=== PATIENT | male | born 1995 | race American Indian/Alaskan Native ===

== ENCOUNTER 2017-12-21 01:48 | Emergency (ER) | payer OTHER ==
[2017-12-21] MEDS ORDERED: MOTRIN ONE (02:02)
[2017-12-21] MEDS ORDERED: MOTRIN PO ONE (02:15)
[2017-12-21] MEDS ORDERED: MORPHINE IV ONE (02:37)
[2017-12-21] MEDS ORDERED: ZOFRAN IV ONE (02:38)
[2017-12-21 02:53] LABS: Basophils # (Auto) 0.1 K/mm3 (0.0-0.1); Basophils % (Auto) 0.7 % (0.0-1.8); Eosinophils # (Auto) 0.4 K/mm3 (0.0-0.4); Eosinophils % (Auto) 2.8 % (0.0-4.3); Hematocrit 43.2 % (35.5-45.6); Hemoglobin 14.5 gm/dl (11.8-15.2); Lymphocytes % (Auto) 30.4 % (13.4-35.0); Mean Corpuscular HGB Conc 34 % (32-34); Mean Corpuscular Hemoglobin 28 pg (28-32); Mean Corpuscular Volume 82 fl (84-94); Monocytes # (Auto) 0.7 K/mm3 (0.0-0.8); Monocytes % (Auto) 5.6 % (0.0-7.3); Platelet Count 326 K/mm3 (140-440); Red Blood Count 5.26 M/mm3 (3.65-5.03); Red Cell Distribution Width 13.2 % (13.2-15.2)
[2017-12-21 02:55] LABS: Alanine Aminotransferase 45 units/L (7-56); Albumin 4.7 g/dL (3.9-5); BUN/Creatinine Ratio 21; Blood Urea Nitrogen 25 mg/dL (9-20); Calcium 9.3 mg/dL (8.4-10.2); Hemolysis Index 25
--- NOTE | 2017-12-21 03:12 | Cat Scan Report ---
FINAL REPORT PROCEDURE: CT HEAD/BRAIN WO CON TECHNIQUE: Computerized tomography of the head was performed without contrast material. HISTORY: headache COMPARISON: No prior studies are available for comparison. FINDINGS: Skull and scalp: Normal. Paranasal sinuses: Normal. Ventricles and subarachnoid spaces: Normal. Cerebrum: No evidence of hemorrhage, acute infarction or mass . Cerebellum and brainstem: No evidence of hemorrhage, acute infarction or mass. Vasculature: Normal. Comments: None. IMPRESSION: Normal Examination
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
[2017-12-21] MEDS ORDERED: DILAUDID IV ONE (03:54)
--- NOTE | 2017-12-21 04:02 | XRay Report ---
FINAL REPORT PROCEDURE: XR ANKLE 2V RT TECHNIQUE: RIGHT ankle radiographs, AP and lateral views. HISTORY: pain COMPARISON: No prior studies are available for comparison. FINDINGS: Fracture (s) and/or Dislocation(s): None. Alignment: Normal. Joint space(s): Normal. Soft tissues: There is lateral soft tissue swelling. Bone mineralization: Normal. Foreign bodies: Normal. Calcaneal spurring: Normal. IMPRESSION: There are no fractures or malalignments. There is lateral soft tissue swelling..
--- NOTE | 2017-12-21 04:04 | XRay Report ---
FINAL REPORT PROCEDURE: XR FOOT 2V RT TECHNIQUE: RIGHT foot radiographs, AP and lateral views. HISTORY: pain COMPARISON: No prior studies are available for comparison. FINDINGS: Fracture (s) and/or Dislocation(s): None . Alignment: Normal. Joint space(s): Normal. Soft tissues: There is pretibial soft tissue swelling. Bone mineralization: Normal. Foreign bodies: None. Calcaneal spurring: There is a tiny posterior calcaneal spur. IMPRESSION: There is no acute bony abnormality. There is pretibial soft tissue swelling.
[2017-12-21] MEDS ORDERED: TORADOL IV ONE (04:17)
--- NOTE | 2017-12-21 04:18 | XRay Report ---
FINAL REPORT EXAM: XR TIBIA FIBULA 2V RT HISTORY: pain COMPARISONS: Right ankle radiographs of the same date FINDINGS: AP and lateral views right tib fib There is focal soft tissue swelling over the lateral malleolus. The tibia and fibula appear intact. No displaced fracture identified. The right knee joint also appears intact. IMPRESSION: Focal soft tissue swelling over the right lateral malleolus without displaced fracture identified.
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
[2017-12-21 06:11] VITALS: BP 136/80
== END 2017-12-21 06:00 | disposition home or self-care (01) ==
LOC: EDBD 01:48 → ED 01:48
DX: S93.491A Sprain of other ligament of right ankle, initial encounter (principal); F17.200 Nicotine dependence, unspecified, uncomplicated; V43.92XA Unspecified car occupant injured in collision with other type car in traffic accident, initial encounter; Y93.89 Activity, other specified; Y92.89 Other specified places as the place of occurrence of the external cause; Y99.8 Other external cause status
CPT/HCPCS: 29515; 36415; 70450; 72125; 72170; 73590; 73600; 73620; 80053; 85025; 86850; 86900; 86901; 96374; 96375; 99285; J1170; J1885; J2270; J2405